=== PATIENT | male | born 1950 | race Caucasian/White ===

== ENCOUNTER → 2017-11-25 | Outpatient (REF) ==
[~2017-11-25] MED LIST: ARTHROTEC 775 MG/TAB PO; ASPIRIN 81M81 MG/TA2 PO; ATIVAN2 MG PO; CELEXA40 MG PO; DESYREL 50MG50 MG PO; NORVASC 10MG10 MG PO; SYNTHROID0.05 MG/TA PO; ULTRAM 50MG TAB50 MG PO; ZESTORETIC 12.51 TAB PO
== END ==
LOC: ZLAB.WCH 18:19
DX: Z01.89 Encounter for other specified special examinations (principal)

== ENCOUNTER → 2019-12-17 | Outpatient (CLI) | payer MEDICARE ==
--- NOTE | 2019-12-13 10:34 | NUR ---
MAILBOX IS FULL
[~2019-12-17] MED LIST changes: +CELEBREX 200MG200 MG PO; +CELEXA 20MG20 MG/TAB PO; +COLESTID 1GM1 G PO; +CURCUMIN95% PO; +FOLIC ACID 40400 MCG PO; +IMODIUM 2MG CAPS2 MG PO; +IRON 27 MG PO; +LIPITOR20 MG PO; +PAMELOR 25MG25 MG PO; +TYLENOL 500MG500 MG PO; +VITAMIN C500 MG PO; +ZESTRIL 20MG TA20 MG PO
== END ==
LOC: COL.CARD 08:23
DX: Z01.818 Encounter for other preprocedural examination (principal); I10 Essential (primary) hypertension

== ENCOUNTER → 2019-12-21 | Outpatient (CLI) | payer MEDICARE ==
[~2019-12-21] MED LIST changes: -CELEBREX 200MG200 MG PO; -CELEXA 20MG20 MG/TAB PO; -COLESTID 1GM1 G PO; -CURCUMIN95% PO; -FOLIC ACID 40400 MCG PO; -IMODIUM 2MG CAPS2 MG PO; -IRON 27 MG PO; -LIPITOR20 MG PO; -PAMELOR 25MG25 MG PO; -TYLENOL 500MG500 MG PO; -VITAMIN C500 MG PO; -ZESTRIL 20MG TA20 MG PO
[2019-12-21 13:49] LABS: COLLECTION METHOD CLEAN CATCH
[2019-12-21 14:11] LABS: BASO # 0.1 (0.0-0.2); BASO % 0.9 % (0.0-2.0); EOS # 0.4 (0.0-0.7); EOS % 4.2 % (0-4.0); GRAN # 5.2 (1.4-6.5); GRAN % 58.6 % (42.2-75.2); HEMATOCRIT 43.7 % (42.0-52.0); HEMOGLOBIN 14.6 g/dl (13.5-18.0); LYMPH # 2.6 (1.2-3.4); LYMPH % 29.1 % (20.0-51.0); MEAN CELL VOLUME 98 fl (80.0-100.0); MEAN CORPUSCULAR HEMOGLOBIN 33 pg (27.0-31.0); MEAN CORPUSCULAR HGB CONC 33 g/dl (33.0-37.0); MEAN PLATELET VOLUME 9.7 fl (7.4-10.4); MONO # 0.6 (0.1-0.6); PLATELET COUNT 361 K/mm3 (130-400); RED BLOOD COUNT 4.44 M/mm3 (4.20-5.60)
[2019-12-21 14:15] LABS: INR 0.9 (0.8-3.0); PROTHROMBIN TIME 10.3 SECONDS (9.7-12.8)
[2019-12-21 14:16] LABS: PH 6 (5-8); SQUAMOUS EPITHELIAL 0-2 /hpf; URINE APPEARANCE Clear; URINE BACTERIA None Seen /hpf; URINE BILIRUBIN Negative (NEGATIVE); URINE BLOOD Negative (NEGATIVE); URINE COLOR Straw; URINE GLUCOSE Negative (NEGATIVE); URINE KETONE Negative (NEGATIVE); URINE LEUKOCYTE ESTERASE Negative (NEGATIVE); URINE NITRATE Negative (NEGATIVE); URINE PROTEIN(semi-quant) Negative (NEGATIVE); URINE RBC 0-2 /hpf; URINE UROBILINOGEN Negative (NEGATIVE)
[2019-12-21 14:25] LABS: ALBUMIN 4.9 gm/dL (3.5-5.0); BILIRUBIN,TOTAL 0.6 mg/dL (0.0-1.0); CALCIUM 10.1 mg/dL (8.4-10.2); CREATININE, serum 0.83 (0.66-1.25); POTASSIUM 4.4 mmol/L (3.4-5.0); TOTAL PROTEIN 8.5 gm/dL (6.4-8.2)
== END ==
LOC: COL.LAB 12:25
PROVIDERS: Registered Nurse
DX: Z01.818 Encounter for other preprocedural examination (principal); I10 Essential (primary) hypertension

== ENCOUNTER → 2020-11-22 | Outpatient (CLI) | payer MEDICARE ==
[~2020-11-22] MED LIST changes: +CELEBREX 200MG200 MG PO; +CELEXA 20MG20 MG/TAB PO; +COLESTID 1GM1 G PO; +CURCUMIN95% PO; +FOLIC ACID 40400 MCG PO; +IMODIUM 2MG CAPS2 MG PO; +IRON 27 MG PO; +LIPITOR20 MG PO; +PAMELOR 25MG25 MG PO; +TYLENOL 500MG500 MG PO; +VITAMIN C500 MG PO; +ZESTRIL 20MG TA20 MG PO
== END ==
LOC: COL.RAD 10:59
DX: R09.89 Other specified symptoms and signs involving the circulatory and respiratory systems (principal)

== ENCOUNTER → 2020-12-18 | Outpatient (CLI) | payer MEDICARE | LOC: COL.RAD 08:37 | DX: Z13.6 Encounter for screening for cardiovascular disorders (principal) ==

== ENCOUNTER → 2021-01-17 | Outpatient (CLI) | payer MEDICARE | LOC: COL.RAD 15:03 | DX: R05.9 Cough, unspecified (principal) ==